=== PATIENT | female | born 1995 | race American Indian/Alaskan Native ===

== ENCOUNTER 2021-11-12 14:29 | Outpatient (CLI) | payer OTHER ==
[2021-11-12 17:49] VITALS: BP 104/58
== END 2021-11-12 18:24 | disposition home or self-care (01) ==
LOC: TRG 14:29 → APU 16:32 → TRG 18:24
PROVIDERS: ATTEND Obstetrics & Gynecology
DX: Z34.93 Encounter for supervision of normal pregnancy, unspecified, third trimester (principal); Z3A.39 39 weeks gestation of pregnancy
CPT/HCPCS: 59025

== ENCOUNTER 2021-11-16 09:36 | Outpatient (CLI) | payer OTHER ==
[2021-11-16 10:19] VITALS: BP 92/50
== END 2021-11-16 11:22 | disposition home or self-care (01) ==
LOC: APU 09:36 → TRG 09:36
PROVIDERS: ATTEND Obstetrics & Gynecology
DX: Z34.93 Encounter for supervision of normal pregnancy, unspecified, third trimester (principal); Z3A.40 40 weeks gestation of pregnancy
CPT/HCPCS: 59025

== ENCOUNTER 2021-11-20 20:42 | Outpatient (CLI) | payer OTHER ==
[2021-11-20 22:05] VITALS: BP 105/56
== END 2021-11-20 23:11 | disposition home or self-care (01) ==
LOC: TRG 20:42 → APU 20:45 → TRG 23:11
PROVIDERS: ATTEND Obstetrics & Gynecology
DX: Z34.93 Encounter for supervision of normal pregnancy, unspecified, third trimester (principal); Z3A.40 40 weeks gestation of pregnancy
CPT/HCPCS: 36415; 59025; 84112